=== PATIENT | female | born 1975 | race Caucasian/White ===

== ENCOUNTER 2021-09-30 10:12 | Emergency (ER) | payer OTHER, BC, SELFPAY ==
[2021-09-30 11:01] VITALS: BP 121/81; PULSE 81; RESP 16; TEMP 36.3; O2SAT 98; BMI 31.6
--- NOTE | 2021-09-30 11:28 | CRLHL7_ITS ---
For Patients: As a result of the Century Cures Act, medical imaging exams and procedure reports are released immediately into your electronic medical record. You may view this report before your referring provider. If you have questions, please contact your health care provider. INDICATION: BRUISE COMPARISON: None. TECHNIQUE: A compression venous ultrasound exam was performed of the right lower extremity using vargas-scale imaging, color Doppler and spectral Doppler analysis. FINDINGS: Sonographic imaging of the right lower extremity demonstrates normal compressibility and color Doppler venous blood flow within the common femoral vein, deep femoral vein, and the proximal greater saphenous vein. Within the thigh, the femoral vein is patent and compressible. At a lower level, the popliteal and posterior tibial veins also show normal compressibility and color Doppler venous blood flow. Limited imaging of the contralateral groin demonstrates a normal spectral waveform and color Doppler venous blood flow within the left common femoral vein. IMPRESSION: Normal venous ultrasound exam. No evidence of deep vein thrombosis within the right lower extremity. Dictated by Tirso Mcmahan MD @ 09/30/2021 12:04:13 PM (Electronically Signed)
--- NOTE | 2021-09-30 11:30 | ED.GENADULT ---
HPI - General Adult General Chief complaint: Extremity Pain/Injury, Lower Stated complaint: w/c hurt legs with machinery Time Seen by Provider: 09/30/21 10:54 History of Present Illness HPI narrative: This 45-year-old female was at work yesterday and got her leg injured between and implement and another structure. She is ambulatory but has pain and decreased range of motion. She has a large bruise on the posterior aspect of her right leg extending from behind her knee down residential to her ankle. She states that she is not on any blood thinners and does not have any prior history of blood clot. She does not report any chest pain or shortness of breath. [employer] services for [employer] are employed in this encounter. Related Data Home Medications Medication Instructions Recorded Confirmed acetaminophen 325 mg capsule 325 mg PO Q6H PRN 09/30/21 09/30/21 ibuprofen 200 mg tablet 200 mg PO Q8H 09/30/21 09/30/21 Previous Rx's Medication Instructions Recorded ketorolac 10 mg tablet 10 mg PO TID 5 Days #15 tab 09/30/21 Allergies Allergy/AdvReac Type Severity Reaction Status Date / Time No Known Drug Allergies Allergy Verified 09/30/21 11:01 Review of Systems Status of ROS: Reports: 10 or more systems reviewed and unremarkable except as noted in History and below Narrative: Constitutional: No fevers, no weight gain or loss. Eyes: No discharge. No vision changes. HENT: No congestion, no sore throat, no ear pain. Cardiovascular: No chest pain, no palpitations. Respiratory: No shortness of breath, no wheezes, no cough. Gastrointestinal: No abdominal pain, no vomiting, no diarrhea. Genitourinary: No dysuria, no hematuria. Musculoskeletal: Normal range of motion. Right leg injury as described above. Skin: No rashes, no pruritis. Neurological: No dizziness, weakness, sensory change, speech change. Endo/Heme/Allergies: No bruising or bleeding. No polydipsia. Pysch: no suicidality, no anxiety, no insomnia. All other systems reviewed and are negative. PFSH PFSH Social History Smoking Status: Never smoker Do you use any of these nicotine containing products: None Second hand tobacco smoke exposure: No How often do you have a drink containing alcohol: never AUDIT-C Alcohol total score: 0 Non-prescribed substance use: denies use service: No Exam Narrative: Exam Narrative: Constitutional: Well-developed, well-nourished, no acute distress. HEENT: Normocephalic, atraumatic. Neck: Normal range of motion. Nontender. Supple. Heart: Regular. No murmurs. Normal rate. Intact distal pulses. Lungs: Clear to auscultation. No chest discomfort. No wheezes, rhonchi, or rales. Abdomen: Normal bowel sounds. Nontender. No rebound tenderness. Genitalia: Deferred. Back: No midline tenderness. Normal range of motion. Extremities: The right knee has decreased range of motion due to swelling. There is extensive bruising with swelling on the posterior aspect of her right knee extending down toward her ankle. Skin: Intact. No rash. Warm. No erythema or pallor. Neurologic: No altered sensation. No weakness. Alert and oriented. Psychiatric: No suicidality. No anxiety or depression. No insomnia. Nursing notes and vitals signs are reviewed. Const: Vital Signs, click to edit/add: Vital Signs - 24 hr 09/30/21 11:01 Temperature 97.4 F L Pulse Rate [Right Pulse Oximeter] 81 Respiratory Rate 16 Blood Pressure [Ri ght Upper Arm] 121/81 Pulse Oximetry 98 Course Vital Signs Vital signs: Initial Vital Signs Temperature 97.4 F L 09/30/21 11:01 Temperature Source Temporal Artery Scan 09/30/21 11:01 Pulse Rate 81 09/30/21 11:01 Pulse Rhythm 09/30/21 11:01 Respiratory Rate 16 09/30/21 11:01 Blood Pressure 121/81 09/30/21 11:01 Blood Pressure Mean 94 09/30/21 11:01 Blood Pressure Position Sitting 09/30/21 11:01 Pulse Oximetry 98 09/30/21 11:01 Oxygen Delivery Method 09/30/21 11:01 Vital Signs Temperature 97.4 F L 09/30/21 11:01 Pulse Rate 81 09/30/21 11:01 Respiratory Rate 16 09/30/21 11:01 Blood Pressure 121/81 09/30/21 11:01 Pulse Oximetry 98 09/30/21 11:01 Temperature 97.4 F L 09/30/21 11:01 Pulse Rate 81 09/30/21 11:01 Respiratory Rate 16 09/30/21 11:01 Blood Pressure 121/81 09/30/21 11:01 Pulse Oximetry 98 09/30/21 11:01 Medical Decision Making MDM Narrative Medical decision making narrative: This patient comes in with a large bruise on the posterior aspect of her right leg from an injury that occurred at work yesterday. She is ambulatory on this leg and is not showing any suspicion of bony injury that would require a x-ray. Ultrasound of the right lower extremity was ordered in order to evaluate for deep venous thrombosis. This returns negative. The patient is okay to return home and received a prescription for Toradol. I also provided a return to work note. Imaging Data Venous US: My impression: Ultrasound of the veins of the right low lower extremity showed no sign of thrombosis. Discharge Plan Discharge Clinical Impression: Contusion of leg, right Patient Disposition: Home, Self-Care Condition: Stable Instructions: Contusion in Adults (ED) Additional Instructions: Contusion of the right leg. Take medication as prescribed. Follow up with MD or return if worsening. Okay to return to work but avoid ambulating longer than 10-15 minutes on the right leg for the next 2-3 days, then increase activity as tolerated. Prescriptions: New ketorolac 10 mg tablet 10 mg PO TID 5 Days Qty: 15 0RF No Action ibuprofen 200 mg tablet 200 mg PO Q8H 0RF acetaminophen 325 mg capsule 325 mg PO Q6H PRN0RF Follow Up/Referrals: Мария Patel DO [Primary Care Provider] - Stand Alone Forms: [email or web address] Info Instructions
== END 2021-09-30 12:29 | disposition home or self-care (01) ==
PROVIDERS: Emergency Provider Emergency Medicine Emergency Medical Services; PCP Family Medicine
DX: S80.11XA Contusion of right lower leg, initial encounter (principal); W31.9XXA Contact with unspecified machinery, initial encounter; Y92.69 Other specified industrial and construction area as the place of occurrence of the external cause; Y99.0 Civilian activity done for income or pay
CPT/HCPCS: 93971; 99284